=== PATIENT | male | born 1990 | race Caucasian/White ===

== ENCOUNTER 2023-05-01 19:59 | Emergency (ER) | payer OTHER ==
[2023-05-02] MEDS: Lidocaine 1% 5 ML VIAL INJECT ONE (00:13)
== END 2023-05-02 00:32 | disposition home or self-care (01) ==
LOC: JP.ED 19:59
DX: L02.212 Cutaneous abscess of back [any part, except buttock and flank] (principal)
CPT/HCPCS: 10061; 99282